=== PATIENT | male | born 1965 | race African-American/Black ===

== ENCOUNTER 2017-01-10 08:31 | Inpatient (IN) | payer BC ==
[2017-01-10 08:50] VITALS: BMI 25.7
--- NOTE | 2017-01-10 11:42 | HP ---
CIWA Score - CIWA Score Nausea/Vomitin-No Nausea/No Vomiting Muscle Tremors: 3 Anxiety: 5 Agitation: 3 Paroxysmal Sweats: 1-Minimal Palms Moist Orientation: 0-Oriented Tacttile Disturbances: 3-Moderate Itch/Numb/Burn Auditory Disturbances: 0-None Visual Disturbances: 0-None Headache: 0-None Present CIWA-Ar Total Score: 15 Admission ROS BHS - HPI Chief Complaint: DETOX TX FOR ALCOHOL DEPENDENCE Allergies/Adverse Reactions: Allergies Allergy/AdvReac Type Severity Reaction Status Date / Time Fish Containing Products Allergy Severe Swelling Verified 01/10/17 09:51 No Known Drug Allergies Allergy Verified 01/10/17 09:51 History of Present Illness: 51 Y/O AA/MALE WITH A HX OF ALCOHOL AND COCAINE DEPENDENCE SEEKING DETOX TX. Exam Limitations: No Limitations - Ebola screening Have you traveled outside of the country in the last 21 days: No Have you had contact with anyone from an Ebola affected area: No Have you been sick,other than usual withdrawal symptoms: No Do you have a fever: No - Review of Systems Constitutional: Chills, Loss of Appetite, Night Sweats, Changes in sleep, Unintentional Wgt. Loss EENT: reports: Blurred Vision, Tearing, Nose Congestion, Dental Problems (ALL TEETH PULLED-"I NEED DENTURES".) Respiratory: reports: No Symptoms reported Cardiac: reports: Lightheadedness GI: reports: Constipated, Diarrhea, Nausea, Poor Appetite, Vomiting, Abdominal cramping : reports: Frequency Musculoskeletal: reports: Back Pain, Joint Pain, Muscle Pain Integumentary: reports: Dryness, Rash Neuro: reports: Headache, Numbness, Tingling, Tremors, Unsteady Gait, Dizziness , Other (BLACKOUTS) Endocrine: reports: No Symptoms Reported Hematology: reports: Anemia (WAS ON IRO SUPPLEMENT) Psychiatric: reports: Orientated x3, Anxious (ON/OFF), Depressed Other Systems: Reviewed and Negative Patient History - Patient Medical History Hx Anemia: No Hx Asthma: No Hx Chronic Obstructive Pulmonary Disease (COPD): No Hx Cancer: No Hx Cardiac Disorders: No Hx Congestive Heart Failure: No Hx Hypertension: No Hx Hypercholesterolemia: No Hx Pacemaker: No HX Cerebrovascular Accident: No Hx Seizures: No Hx Dementia: No Hx Diabetes: No Hx Gastrointestinal Disorders: No Hx Liver Disease: No Hx Genitourinary Disorders: No Hx Sexually Transmitted Disorders: No Hx Renal Disease (ESRD): No Hx Thyroid Disease: No Hx Human Immunodeficiency Virus (HIV): Yes (SINCE 2004- on reyataz,truvada and norvir) Hx Hepatitis C: No Hx Depression: No Hx Suicide Attempt: No (DENIES) Hx Bipolar Disorder: No Hx Schizophrenia: No - Patient Surgical History Past Surgical History: Yes Hx Neurologic Surgery: No Hx Cataract Extraction: No Hx Cardiac Surgery: No Hx Lung Surgery: No Hx Breast Surgery: No Hx Breast Biopsy: No Hx Abdominal Surgery: No Hx Appendectomy: No Hx Cholecystectomy: No Hx Genitourinary Surgery: No Hx Orthopedic Surgery: Yes (2010-left knee eplacement) Anesthesia Reaction: No - PPD History Previous Implant?: Yes Documented Results: Negative w/proof Implanted On Prior R Admission?: Yes Date: 09/24/12 Results: 0 mm PPD to be Administered?: Yes - Reproductive History Patient is a Female of Child Bearing Age (11 -55 yrs old): No (MALE) Patient : (N/A) - Smoking Cessation Smoking history: Current every day smoker Have you smoked in the past 12 months: Yes Aproximately how many cigarettes per day: 10 Cigars Per Day: 0 Hx Chewing Tobacco Use: No Initiated information on smoking cessation: Yes 'Breaking Loose' booklet given: 01/10/17 - Substance & Tx. History Hx Alcohol Use: Yes (BEER/VODKA) Hx Substance Use: Yes (CRACK) - Substances Abused Crack Route: Smoking Frequency: Daily Amount used: $40-50 Age of first use: 25 Date of Last Use: 01/08/17 Alcohol-vodka/beer Route: Oral Frequency: Daily Amount used: 1 pt./4-5 (14 oz.) Age of first use: 12 Date of Last Use: 01/09/17 Family Disease History - Family Disease History Family Disease History: Diabetes: Father (HTN), Mother (HTN), Brother ((TWIN BROTHER) HTN), Other: Father, Mother, Brother Admission Physical Exam BHS - Vital Signs Vital Signs: Vital Signs - 24 hr 01/10/17 08:48 Temperature 97 F L Pulse Rate 71 Respiratory 20 Rate Blood Pressure 137/96 - Physical General Appearance: Yes: Moderate Distress, Irritable, Anxious HEENTM: Yes: EOMI, Normocephalic, DELILAH, Pharynx Normal Respiratory: Yes: Chest Non-Tender, Lungs Clear, Normal Breath Sounds, No Respiratory Distress Neck: Yes: No masses,lesions,Nodules, Supple, Trachea in good position Breast: Yes: Breast Exam Deferred Cardiology: Yes: Regular Rate, S1, S2 Abdominal: Yes: Normal Bowel Sounds, Non Tender, Soft Genitourinary: Yes: Other (N/C) Back: Yes: Within Normal Limits Musculoskeletal: Yes: full range of Motion, Gait Steady Extremities: Yes: Normal Range of Motion, Non-Tender, Other (SX SCAR LEFT KNEE) 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, Fully Oriented, Alert Integumentary: Yes: Dry, Warm Lymphatic: Yes: Within Normal Limits - Diagnostic (1) Human immunodeficiency virus infection Current Visit: Yes Status: Chronic (2) Alcohol dependence with uncomplicated withdrawal Current Visit: Yes Status: Acute (3) Cocaine dependence, uncomplicated Current Visit: Yes Status: Acute (4) Nicotine dependence Current Visit: Yes Status: Acute Qualifiers: Nicotine product type: cigarettes Substance use status: in withdrawal Qualified Code(s): F17.213 - Nicotine dependence, cigarettes, with withdrawal Cleared for Admission [facility] - Detox or Rehab [facility] Level of Care: Medically Managed Detox Regimen/Protocol: Librium [facility] Breath Alcohol Content Breath Alcohol Content: 0 Urine Drug Screen - Results Drug Screen Negative: No Urine Drug Screen Results: BETTIE-Cocaine
[2017-01-10] MEDS ORDERED: MAG HYDROX/AL HYDROX/SIMETH 30 ML UNIT-DOSE CUP PO PRN (11:54)
[2017-01-10] MEDS ORDERED: MENTHOL/PHENOL 1 EACH UD MM PRN (11:54)
[2017-01-10] MEDS ORDERED: ACETAMINOPHEN 325 MG TABLET (FP) PO PRN (11:54)
[2017-01-10] MEDS ORDERED: NICOTINE POLACRILEX 2 MG GUM BC PRN (11:54)
[2017-01-10] MEDS ORDERED: IBUPROFEN 400 MG TABLET (FP) PO PRN (11:54)
[2017-01-10] MEDS ORDERED: hydrOXYzine PAMOATE 25 MG CAPSULE (FP) PO PRN (11:54)
[2017-01-10] MEDS ORDERED: diphenhydrAMINE HCL 50 MG CAPSULE PO PRN (11:54)
[2017-01-10] MEDS ORDERED: MAGNESIUM CITRATE 300 ML BOTTLE PO PRN (11:54)
[2017-01-10] MEDS ORDERED: chlordiazePOXIDE HCL 25 MG CAPSULE PO PRN (11:54)
[2017-01-10] MEDS ORDERED: MAGNESIUM HYDROX 2400MG/30ML ORAL SUSPENSION 30 ML CUP PO PRN (11:54)
[2017-01-10] MEDS ORDERED: LOPERAMIDE HCL 2 MG CAPSULE PO PRN (11:54)
[2017-01-10] MEDS ORDERED: guaiFENesin/D-METHORPHAN HB 10 ML UNIT-DOSE CUPS PO PRN (11:54)
[2017-01-10] MEDS ORDERED: P-EPHED 60MG/TRIPROLIDI 2.5MG TABLET PO PRN (11:54)
[2017-01-10] MEDS ORDERED: ATAZANAVIR SO4 300 MG CAPSULE PO SCH (12:00)
[2017-01-10] MEDS ORDERED: NYSTATIN/TRIAMCINOLONE TOPICAL OINTMENT 15 GM TUBE TP SCH (12:00)
[2017-01-10] MEDS: SULFAMETHOXAZOLE/TRIMETHOPRIM 800MG/160MG D.S. TABLET PO SCH (13:36)
[2017-01-10] MEDS: NICOTINE 14 MG/24 HOURS TOPICAL PATCH TD SCH (13:39)
[2017-01-10] MEDS: RITONAVIR 100 MG TABLET PO SCH (15:14)
[2017-01-10] MEDS: EMTRICITABINE 200MG/TENOFOVIR 300MG PO SCH (15:14)
[2017-01-10] MEDS: DARUNAVIR ETHANOLATE 800 MG TAB PO SCH (15:14)
[2017-01-10] MEDS: RALTEGRAVIR POTASSIUM 400 MG TAB PO SCH ×2 (15:14→22:13)
[2017-01-10] MEDS: TRIAMCINOLONE ACET 0.1% CREAM 15 GM TUBE TP SCH ×2 (15:15→22:12)
[2017-01-10 15:26] LABS: MCH 31.8 pg (25.7-33.7); MCHC 33.1 g/dl (32.0-35.9); MEAN PLT VOLUME 9.3 fl (7.5-11.1); PLATELET COUNT 211 K/MM3 (134-434); RDW 17.4 % (11.9-15.9); WHITE BLOOD COUNT 2.4 K/mm3 (4.0-10.0)
[2017-01-10 15:33] LABS: ALBUMIN 3.5 g/dl (3.4-5.0); ANION GAP 5 (8-16); CALCIUM 9.2 mg/dL (8.5-10.1); CO2 30 mmol/L (21-32); CREATININE 0.9 mg/dL (0.7-1.3); GLUCOSE,RANDOM 70 mg/dL (74-106); SGOT/AST 28 U/L (15-37); SGPT/ALT 40 U/L (12-78)
[2017-01-10 15:35] LABS: ALK PHOS 89 U/L (45-117); BILIRUBIN,TOTAL 0.4 mg/dL (0.2-1.0); TOT PROT 7.3 g/dl (6.4-8.2)
[2017-01-10] MEDS: chlordiazePOXIDE HCL 25 MG CAPSULE PO SCH ×2 (17:25→22:12)
[2017-01-10 18:19] LABS: SICKLE CELL SCREEN NEGATIVE (NEGATIVE)
[2017-01-10] MEDS: THIAMINE HCL 100 MG TABLET (FP) PO SCH (22:12)
[2017-01-10 22:35] LABS: URINE APPEARANCE CLEAR; URINE BILIRUBIN NEGATIVE (NEGATIVE); URINE BLOOD NEGATIVE (NEGATIVE); URINE COLOR LTYELLOW; URINE GLUCOSE (UA) NEGATIVE (NEGATIVE); URINE KETONE NEGATIVE (NEGATIVE); URINE LEUK ESTERASE NEGATIVE (NEGATIVE); URINE NITRITE NEGATIVE (NEGATIVE); URINE PROTEIN NEGATIVE (NEGATIVE); URINE UROBILINOGEN NEGATIVE mg/dL (0.2-1.0)
[2017-01-11] MEDS: chlordiazePOXIDE HCL 25 MG CAPSULE PO SCH ×4 (05:12→22:20)
[2017-01-11] MEDS: PRENATAL VITAMINS W/ FOLIC ACID TABLET (FP) PO SCH (10:16)
[2017-01-11] MEDS: SULFAMETHOXAZOLE/TRIMETHOPRIM 800MG/160MG D.S. TABLET PO SCH (10:17)
[2017-01-11] MEDS: TRIAMCINOLONE ACET 0.1% CREAM 15 GM TUBE TP SCH ×2 (10:17→22:20)
[2017-01-11] MEDS: RITONAVIR 100 MG TABLET PO SCH (10:17)
[2017-01-11] MEDS: RALTEGRAVIR POTASSIUM 400 MG TAB PO SCH ×2 (10:17→22:20)
[2017-01-11] MEDS: DARUNAVIR ETHANOLATE 800 MG TAB PO SCH (10:17)
[2017-01-11] MEDS: EMTRICITABINE 200MG/TENOFOVIR 300MG PO SCH (10:17)
[2017-01-11] MEDS: NICOTINE 14 MG/24 HOURS TOPICAL PATCH TD SCH (10:17)
--- NOTE | 2017-01-11 11:12 | PN ---
[facility] CIWA - CIWA Score Nausea/Vomitin-No Nausea/No Vomiting Muscle Tremors: 4-Moderate,w/Arms Extend Anxiety: 4-Mod. Anxious/Guarded Agitation: 4-Moderately Restless Paroxysmal Sweats: 1-Minimal Palms Moist Orientation: 0-Oriented Tacttile Disturbances: 3-Moderate Itch/Numb/Burn Auditory Disturbances: 0-None Visual Disturbances: 0-None Headache: 0-None Present CIWA-Ar Total Score: 16 S Progress Note (SOAP) Subjective: ANXIETY,SWEATS,TREMORS,DIARRHEA,INTERMITTENT SLEEP. Objective: 01/11/17 11:11 Vital Signs Temperature 97.2 F L 01/11/17 09:19 Pulse Rate 112 H 01/11/17 09:19 Respiratory Rate 18 01/11/17 09:19 Blood Pressure 116/84 01/11/17 09:19 O2 Sat by Pulse Oximetry (%) Laboratory Last Values WBC 2.4 K/mm3 (4.0-10.0) L D 01/10/17 11:50 RBC 4.69 M/mm3 (4.00-5.60) 01/10/17 11:50 Hgb 14.9 GM/dL (11.7-16.9) 01/10/17 11:50 Hct 45.0 % (35.4-49) 01/10/17 11:50 MCV 96.0 fl (80-96) 01/10/17 11:50 MCH 31.8 pg (25.7-33.7) 01/10/17 11:50 MCHC 33.1 g/dl (32.0-35.9) 01/10/17 11:50 RDW 17.4 % (11.9-15.9) H D 01/10/17 11:50 Plt Count 211 K/MM3 (134-434) D 01/10/17 11:50 MPV 9.3 fl (7.5-11.1) 01/10/17 11:50 Sickle Cell Screen Negative (NEGATIVE) 01/10/17 11:50 Sodium 141 mmol/L (136-145) 01/10/17 11:50 Potassium 4.3 mmol/L (3.5-5.1) 01/10/17 11:50 Chloride 106 mmol/L (98-107) 01/10/17 11:50 Carbon Dioxide 30 mmol/L (21-32) D 01/10/17 11:50 Anion Gap 5 (8-16) L 01/10/17 11:50 BUN 8 mg/dL (7-18) D 01/10/17 11:50 Creatinine 0.9 mg/dL (0.7-1.3) 01/10/17 11:50 Creat Clearance w eGFR > 60 (>60) 01/10/17 11:50 Random Glucose 70 mg/dL (74-106) L 01/10/17 11:50 Calcium 9.2 mg/dL (8.5-10.1) 01/10/17 11:50 Total Bilirubin 0.4 mg/dL (0.2-1.0) D 01/10/17 11:50 AST 28 U/L (15-37) D 01/10/17 11:50 ALT 40 U/L (12-78) D 01/10/17 11:50 Alkaline Phosphatase 89 U/L (45-117) D 01/10/17 11:50 Total Protein 7.3 g/dl (6.4-8.2) 01/10/17 11:50 Albumin 3.5 g/dl (3.4-5.0) 01/10/17 11:50 Urine Color Ltyellow 01/10/17 22:20 Urine Appearance Clear 01/10/17 22:20 Urine pH 5.0 (5.0-8.0) 01/10/17 22:20 Urine Protein Negative (NEGATIVE) 01/10/17 22:20 Urine Glucose (UA) Negative (NEGATIVE) 01/10/17 22:20 Urine Ketones Negative (NEGATIVE) 01/10/17 22:20 Urine Blood Negative (NEGATIVE) 01/10/17 22:20 Urine Nitrite Negative (NEGATIVE) 01/10/17 22:20 Urine Bilirubin Negative (NEGATIVE) 01/10/17 22:20 Urine Urobilinogen Negative mg/dL (0.2-1.0) 01/10/17 22:20 Ur Leukocyte Esterase Negative (NEGATIVE) 01/10/17 22:20 RPR Titer Nonreactive (NONREACTIVE) 01/10/17 11:50 Assessment: 01/11/17 11:11 WITHDRAWAL SX Plan: CONTINUE DETOX
[2017-01-11] MEDS: THIAMINE HCL 100 MG TABLET (FP) PO SCH (22:20)
[2017-01-12] MEDS: chlordiazePOXIDE HCL 25 MG CAPSULE PO SCH ×2 (05:16→10:15)
[2017-01-12] MEDS: DARUNAVIR ETHANOLATE 800 MG TAB PO SCH (10:15)
[2017-01-12] MEDS: TRIAMCINOLONE ACET 0.1% CREAM 15 GM TUBE TP SCH ×2 (10:15→22:33)
[2017-01-12] MEDS: PRENATAL VITAMINS W/ FOLIC ACID TABLET (FP) PO SCH (10:15)
[2017-01-12] MEDS: RALTEGRAVIR POTASSIUM 400 MG TAB PO SCH ×2 (10:15→22:33)
[2017-01-12] MEDS: SULFAMETHOXAZOLE/TRIMETHOPRIM 800MG/160MG D.S. TABLET PO SCH (10:15)
[2017-01-12] MEDS: EMTRICITABINE 200MG/TENOFOVIR 300MG PO SCH (10:16)
[2017-01-12] MEDS: RITONAVIR 100 MG TABLET PO SCH (10:16)
[2017-01-12] MEDS: NICOTINE 14 MG/24 HOURS TOPICAL PATCH TD SCH (10:16)
--- NOTE | 2017-01-12 11:09 | PN ---
[facility] CIWA - CIWA Score Nausea/Vomitin-No Nausea/No Vomiting Muscle Tremors: 4-Moderate,w/Arms Extend Anxiety: 4-Mod. Anxious/Guarded Agitation: 4-Moderately Restless Paroxysmal Sweats: 1-Minimal Palms Moist Orientation: 0-Oriented Tacttile Disturbances: 3-Moderate Itch/Numb/Burn Auditory Disturbances: 0-None Visual Disturbances: 0-None Headache: 0-None Present CIWA-Ar Total Score: 16 S Progress Note (SOAP) Subjective: ANXIETY,SWEATS,TREMORS,INTERMITTENT SLEEP. Objective: 01/12/17 11:17 Vital Signs Temperature 98.1 F 01/12/17 09:33 Pulse Rate 112 H 01/12/17 09:33 Respiratory Rate 18 01/12/17 09:33 Blood Pressure 112/82 01/12/17 09:33 O2 Sat by Pulse Oximetry (%) Laboratory Last Values WBC 2.4 K/mm3 (4.0-10.0) L D 01/10/17 11:50 RBC 4.69 M/mm3 (4.00-5.60) 01/10/17 11:50 Hgb 14.9 GM/dL (11.7-16.9) 01/10/17 11:50 Hct 45.0 % (35.4-49) 01/10/17 11:50 MCV 96.0 fl (80-96) 01/10/17 11:50 MCH 31.8 pg (25.7-33.7) 01/10/17 11:50 MCHC 33.1 g/dl (32.0-35.9) 01/10/17 11:50 RDW 17.4 % (11.9-15.9) H D 01/10/17 11:50 Plt Count 211 K/MM3 (134-434) D 01/10/17 11:50 MPV 9.3 fl (7.5-11.1) 01/10/17 11:50 Sickle Cell Screen Negative (NEGATIVE) 01/10/17 11:50 Sodium 141 mmol/L (136-145) 01/10/17 11:50 Potassium 4.3 mmol/L (3.5-5.1) 01/10/17 11:50 Chloride 106 mmol/L (98-107) 01/10/17 11:50 Carbon Dioxide 30 mmol/L (21-32) D 01/10/17 11:50 Anion Gap 5 (8-16) L 01/10/17 11:50 BUN 8 mg/dL (7-18) D 01/10/17 11:50 Creatinine 0.9 mg/dL (0.7-1.3) 01/10/17 11:50 Creat Clearance w eGFR > 60 (>60) 01/10/17 11:50 Random Glucose 70 mg/dL (74-106) L 01/10/17 11:50 Calcium 9.2 mg/dL (8.5-10.1) 01/10/17 11:50 Total Bilirubin 0.4 mg/dL (0.2-1.0) D 01/10/17 11:50 AST 28 U/L (15-37) D 01/10/17 11:50 ALT 40 U/L (12-78) D 01/10/17 11:50 Alkaline Phosphatase 89 U/L (45-117) D 01/10/17 11:50 Total Protein 7.3 g/dl (6.4-8.2) 01/10/17 11:50 Albumin 3.5 g/dl (3.4-5.0) 01/10/17 11:50 Urine Color Ltyellow 01/10/17 22:20 Urine Appearance Clear 01/10/17 22:20 Urine pH 5.0 (5.0-8.0) 01/10/17 22:20 Ur Specific [place] 1.020 (1.005-1.025) 01/10/17 22:20 Urine Protein Negative (NEGATIVE) 01/10/17 22:20 Urine Glucose (UA) Negative (NEGATIVE) 01/10/17 22:20 Urine Ketones Negative (NEGATIVE) 01/10/17 22:20 Urine Blood Negative (NEGATIVE) 01/10/17 22:20 Urine Nitrite Negative (NEGATIVE) 01/10/17 22:20 Urine Bilirubin Negative (NEGATIVE) 01/10/17 22:20 Urine Urobilinogen Negative mg/dL (0.2-1.0) 01/10/17 22:20 Ur Leukocyte Esterase Negative (NEGATIVE) 01/10/17 22:20 RPR Titer Nonreactive (NONREACTIVE) 01/10/17 11:50 Assessment: 01/12/17 11:17 WITHDRAWAL SX Plan: CONTINUE DETOX
--- NOTE | 2017-01-12 14:52 | EKG ---
Test Reason : Blood Pressure : / mmHG Vent. Rate : 068 BPM Atrial Rate : 068 BPM P-R Int : 132 ms QRS Dur : 092 ms QT Int : 438 ms P-R-T Axes : -23 006 000 degrees QTc Int : 465 ms NORMAL SINUS RHYTHM NONSPECIFIC T WAVE ABNORMALITY PROLONGED QT ABNORMAL ECG NO PREVIOUS ECGS AVAILABLE Confirmed by SUNG BETANCOURT MD ([id number]) on 01/12/2017 2:51:52 PM Referred By: Confirmed By:SUNG BETANCOURT MD
[2017-01-12] MEDS: chlordiazePOXIDE 5 MG CAPSULE PO SCH ×2 (17:26→22:33)
[2017-01-12] MEDS: THIAMINE HCL 100 MG TABLET (FP) PO SCH (22:33)
[2017-01-13] MEDS: chlordiazePOXIDE 5 MG CAPSULE PO SCH ×2 (05:19→10:21)
[2017-01-13] MEDS: PRENATAL VITAMINS W/ FOLIC ACID TABLET (FP) PO SCH (10:21)
[2017-01-13] MEDS: EMTRICITABINE 200MG/TENOFOVIR 300MG PO SCH (10:21)
[2017-01-13] MEDS: NICOTINE 14 MG/24 HOURS TOPICAL PATCH TD SCH (10:21)
[2017-01-13] MEDS: RALTEGRAVIR POTASSIUM 400 MG TAB PO SCH ×2 (10:21→22:35)
[2017-01-13] MEDS: SULFAMETHOXAZOLE/TRIMETHOPRIM 800MG/160MG D.S. TABLET PO SCH (10:21)
[2017-01-13] MEDS: TRIAMCINOLONE ACET 0.1% CREAM 15 GM TUBE TP SCH ×2 (10:21→22:35)
[2017-01-13] MEDS: RITONAVIR 100 MG TABLET PO SCH (10:21)
[2017-01-13] MEDS: DARUNAVIR ETHANOLATE 800 MG TAB PO SCH (10:21)
--- NOTE | 2017-01-13 10:35 | PN ---
[facility] Progress Note (SOAP) Subjective: DECREASED ANXIETY,TREMORS,SWEATS. ALERT O X 3. OOB AROUND THE UNIT. Objective: 01/13/17 10:34 Vital Signs Temperature 97.1 F L 01/13/17 09:24 Pulse Rate 86 01/13/17 09:24 Respiratory Rate 18 01/13/17 09:24 Blood Pressure 98/70 01/13/17 09:24 O2 Sat by Pulse Oximetry (%) Laboratory Last Values WBC 2.4 K/mm3 (4.0-10.0) L D 01/10/17 11:50 RBC 4.69 M/mm3 (4.00-5.60) 01/10/17 11:50 Hgb 14.9 GM/dL (11.7-16.9) 01/10/17 11:50 Hct 45.0 % (35.4-49) 01/10/17 11:50 MCV 96.0 fl (80-96) 01/10/17 11:50 MCH 31.8 pg (25.7-33.7) 01/10/17 11:50 MCHC 33.1 g/dl (32.0-35.9) 01/10/17 11:50 RDW 17.4 % (11.9-15.9) H D 01/10/17 11:50 Plt Count 211 K/MM3 (134-434) D 01/10/17 11:50 MPV 9.3 fl (7.5-11.1) 01/10/17 11:50 Sickle Cell Screen Negative (NEGATIVE) 01/10/17 11:50 Sodium 141 mmol/L (136-145) 01/10/17 11:50 Potassium 4.3 mmol/L (3.5-5.1) 01/10/17 11:50 Chloride 106 mmol/L (98-107) 01/10/17 11:50 Carbon Dioxide 30 mmol/L (21-32) D 01/10/17 11:50 Anion Gap 5 (8-16) L 01/10/17 11:50 BUN 8 mg/dL (7-18) D 01/10/17 11:50 Creatinine 0.9 mg/dL (0.7-1.3) 01/10/17 11:50 Creat Clearance w eGFR > 60 (>60) 01/10/17 11:50 Random Glucose 70 mg/dL (74-106) L 01/10/17 11:50 Calcium 9.2 mg/dL (8.5-10.1) 01/10/17 11:50 Total Bilirubin 0.4 mg/dL (0.2-1.0) D 01/10/17 11:50 AST 28 U/L (15-37) D 01/10/17 11:50 ALT 40 U/L (12-78) D 01/10/17 11:50 Alkaline Phosphatase 89 U/L (45-117) D 01/10/17 11:50 Total Protein 7.3 g/dl (6.4-8.2) 01/10/17 11:50 Albumin 3.5 g/dl (3.4-5.0) 01/10/17 11:50 Urine Color Ltyellow 01/10/17 22:20 Urine Appearance Clear 01/10/17 22:20 Urine pH 5.0 (5.0-8.0) 01/10/17 22:20 Ur Specific [place] 1.020 (1.005-1.025) 01/10/17 22:20 Urine Protein Negative (NEGATIVE) 01/10/17 22:20 Urine Glucose (UA) Negative (NEGATIVE) 01/10/17 22:20 Urine Ketones Negative (NEGATIVE) 01/10/17 22:20 Urine Blood Negative (NEGATIVE) 01/10/17 22:20 Urine Nitrite Negative (NEGATIVE) 01/10/17 22:20 Urine Bilirubin Negative (NEGATIVE) 01/10/17 22:20 Urine Urobilinogen Negative mg/dL (0.2-1.0) 01/10/17 22:20 Ur Leukocyte Esterase Negative (NEGATIVE) 01/10/17 22:20 RPR Titer Nonreactive (NONREACTIVE) 01/10/17 11:50 Assessment: 01/13/17 10:34 WITHDRAWAL SX Plan: CONTINUE DETOX INCREASE PO FLUIDS.
[2017-01-13] MEDS: chlordiazePOXIDE HCL 10 MG CAPSULE PO SCH ×2 (17:02→22:35)
[2017-01-13 21:50] VITALS: TEMP 96.9
[2017-01-13] MEDS: THIAMINE HCL 100 MG TABLET (FP) PO SCH (22:36)
[2017-01-14] MEDS: chlordiazePOXIDE HCL 10 MG CAPSULE PO SCH (05:33)
[2017-01-14 06:16] VITALS: BP 104/76; PULSE 104
--- NOTE | 2017-01-14 12:16 | DS ---
[facility] Detox Discharge Summary Admission Date: 01/10/17 Discharge Date: 01/14/17 - History Present History: Alcohol Dependence, Cocaine Dependence Additional Comments: DETOX COMPLETED. ALERT O X 3. NAD. PT INSTRUCTED TO FOLLOW UP WITH PCP DR. HARDEN AT [facility] FOR MEDICAL MANAGEMENT. Pertinent Past History: HIV+ - Physical Exam Results Vital Signs: Vital Signs Temperature 96.9 F L 01/14/17 06:15 Pulse Rate 104 H 01/14/17 06:15 Respiratory Rate 18 01/14/17 06:15 Blood Pressure 104/76 01/14/17 06:15 O2 Sat by Pulse Oximetry (%) Pertinent Admission Physical Exam Findings: WITHDRAWAL SX Laboratory Last Values WBC 2.4 K/mm3 (4.0-10.0) L D 01/10/17 11:50 RBC 4.69 M/mm3 (4.00-5.60) 01/10/17 11:50 Hgb 14.9 GM/dL (11.7-16.9) 01/10/17 11:50 Hct 45.0 % (35.4-49) 01/10/17 11:50 MCV 96.0 fl (80-96) 01/10/17 11:50 MCH 31.8 pg (25.7-33.7) 01/10/17 11:50 MCHC 33.1 g/dl (32.0-35.9) 01/10/17 11:50 RDW 17.4 % (11.9-15.9) H D 01/10/17 11:50 Plt Count 211 K/MM3 (134-434) D 01/10/17 11:50 MPV 9.3 fl (7.5-11.1) 01/10/17 11:50 Sickle Cell Screen Negative (NEGATIVE) 01/10/17 11:50 Sodium 141 mmol/L (136-145) 01/10/17 11:50 Potassium 4.3 mmol/L (3.5-5.1) 01/10/17 11:50 Chloride 106 mmol/L (98-107) 01/10/17 11:50 Carbon Dioxide 30 mmol/L (21-32) D 01/10/17 11:50 Anion Gap 5 (8-16) L 01/10/17 11:50 BUN 8 mg/dL (7-18) D 01/10/17 11:50 Creatinine 0.9 mg/dL (0.7-1.3) 01/10/17 11:50 Creat Clearance w eGFR > 60 (>60) 01/10/17 11:50 Random Glucose 70 mg/dL (74-106) L 01/10/17 11:50 Calcium 9.2 mg/dL (8.5-10.1) 01/10/17 11:50 Total Bilirubin 0.4 mg/dL (0.2-1.0) D 01/10/17 11:50 AST 28 U/L (15-37) D 01/10/17 11:50 ALT 40 U/L (12-78) D 01/10/17 11:50 Alkaline Phosphatase 89 U/L (45-117) D 01/10/17 11:50 Total Protein 7.3 g/dl (6.4-8.2) 01/10/17 11:50 Albumin 3.5 g/dl (3.4-5.0) 01/10/17 11:50 Urine Color Ltyellow 01/10/17 22:20 Urine Appearance Clear 01/10/17 22:20 Urine pH 5.0 (5.0-8.0) 01/10/17 22:20 Ur Specific [place] 1.020 (1.005-1.025) 01/10/17 22:20 Urine Protein Negative (NEGATIVE) 01/10/17 22:20 Urine Glucose (UA) Negative (NEGATIVE) 01/10/17 22:20 Urine Ketones Negative (NEGATIVE) 01/10/17 22:20 Urine Blood Negative (NEGATIVE) 01/10/17 22:20 Urine Nitrite Negative (NEGATIVE) 01/10/17 22:20 Urine Bilirubin Negative (NEGATIVE) 01/10/17 22:20 Urine Urobilinogen Negative mg/dL (0.2-1.0) 01/10/17 22:20 Ur Leukocyte Esterase Negative (NEGATIVE) 01/10/17 22:20 RPR Titer Nonreactive (NONREACTIVE) 01/10/17 11:50 - Treatment Hospital Course: Detox Protocol Followed, Detoxed Safely, Responded well, Discharged Condition Good - Medication Discharge Medications: Ambulatory Orders Emtricitabine/Tenofovir [Truvada -] 1 tab PO DAILY 09/22/12 Ritonavir [Norvir -] 100 mg PO DAILY 09/22/12 Darunavir Ethanolate [Prezista -] 800 mg PO DAILY 01/10/17 Multivitamins [Tab-A-Vit -] 1 tab PO DAILY 01/10/17 Naproxen [Naprosyn -] 500 mg PO BID PRN 01/10/17 Nystatin/Triamcinolone Top Oin [Mycolog II Ointment -] 1 applic TP BID 01/10/17 Raltegravir [Isentress -] 400 mg PO BID 01/10/17 Sulfamethoxazole/Trimethoprim [Sulfamethoxazole-Tmp Ds Tablet] 1 each PO DAILY 01/10/17 Triamcinolone Acet 0.1% Cream [Aristocort] 0 gm TP BID 01/10/17 Vitamin E 100 unit PO DAILY 01/10/17 - Diagnosis (1) Human immunodeficiency virus infection Status: Chronic (2) Alcohol dependence with uncomplicated withdrawal Status: Acute (3) Cocaine dependence, uncomplicated Status: Acute (4) Nicotine dependence Status: Acute Qualifiers: Nicotine product type: cigarettes Substance use status: in withdrawal Qualified Code(s): F17.213 - Nicotine dependence, cigarettes, with withdrawal - AMA Did Patient Leave Against Medical Advice: No
== END 2017-01-14 08:40 | disposition home or self-care (01) | DRG 774 ==
LOC: YASAS 08:31 → Y3N 12:34
PROVIDERS: ADMIT Internal Medicine; ATTEND Internal Medicine
PROC: HZ2ZZZZ Detoxification Services for Substance Abuse Treatment (ICD-10-PCS; principal; 2017-01-10)
DX: F10.230 Alcohol dependence with withdrawal, uncomplicated (principal); F14.20 Cocaine dependence, uncomplicated; F17.213 Nicotine dependence, cigarettes, with withdrawal; Z21 Asymptomatic human immunodeficiency virus [HIV] infection status; Z91.013 Allergy to seafood; Z96.652 Presence of left artificial knee joint
CPT/HCPCS: 36415; 80053; 81003; 85027; 85660; 86593; 93005; 93010